=== PATIENT | male | born 1970 | race Caucasian/White ===

== ENCOUNTER 2023-03-06 06:25 | Day surgery (SDC) | payer BC ==
[~2023-03-06 06:25] MED LIST: Dextrose 5%-0.45% NaCl 1,000 ML IV SCH; Sodium Chloride 0.9% 10 ML Syringe FLUSH PRN; Sodium Chloride 0.9% 10 ML Syringe FLUSH SCH
[2023-03-06] MEDS ORDERED: Midazolam 1 MG/ML 2 ML SDV ONE (07:42)
[2023-03-06] MEDS ORDERED: fentaNYL 100 MCG/2 ML SDV ONE (07:42)
[2023-03-06] MEDS ORDERED: fentaNYL 100 MCG/2 ML SDV IV ONE ×4 (07:45→07:56)
[2023-03-06] MEDS ORDERED: Midazolam 1 MG/ML 2 ML SDV IV ONE ×6 (07:46→07:55)
== END 2023-03-06 09:25 | disposition home or self-care (01) ==
LOC: DL.ENDO 06:25
PROVIDERS: ATTEND Internal Medicine Gastroenterology
DX: D12.3 Benign neoplasm of transverse colon (principal); K64.4 Residual hemorrhoidal skin tags; K64.8 Other hemorrhoids; E66.09 Other obesity due to excess calories; E78.00 Pure hypercholesterolemia, unspecified; Z98.890 Other specified postprocedural states; Z68.29 Body mass index [BMI] 29.0-29.9, adult
CPT/HCPCS: J2250; J3010; J7042